=== PATIENT | male | born 1975 | race African-American/Black ===

== ENCOUNTER 2017-11-16 12:16 | Inpatient (IN) | payer OTHER ==
[~2017-11-16] VITALS: Ht 185.4 cm; Wt 141.5 kg
[2017-11-16 13:13] LABS: PLATELET COUNT 229 x10^3mcL (130-400); RED CELL DISTRIBUTION WIDTH 13.8 % (11.5-14.5)
[2017-11-16 13:23] LABS: BAND NEUTROPHIL 0 % (0-10); BASOPHIL 0 % (0-2); MONOCYTE 14 % (0-7); SEGMENTED NEUTROPHILS 51 % (37-75)
[2017-11-16 13:25] LABS: PLATELET MORPHOLOGY PLATELETS NORMAL
[2017-11-16 14:32] LABS: ALBUMIN 2.9 g/dL (3.4-5.0); BILIRUBIN TOTAL 0.39 mg/dL (0.20-1.00); CALCIUM 8.5 mg/dL (8.5-10.1); CARBON DIOXIDE 20.7 mmol/L (21-32); FREE T4 1.43 ng/dL (0.76-1.46); POTASSIUM SERUM 4.3 mmol/L (3.5-5.1); TOTAL PROTEIN, SERUM 7.5 g/dL (6.4-8.2)
[2017-11-16 14:34] LABS: CREATININE SERUM 5.7 mg/dL (0.7-1.3)
[2017-11-16 15:38] VITALS: BP 109/56
[2017-11-16] MEDS ORDERED: ACETAMINOP160 MG/52 PO (15:46)
[2017-11-16] MEDS ORDERED: AMOXICILLIN500 MG PO (15:47)
[2017-11-16] MEDS ORDERED: CALCITRIOL0.25 MCG PO (15:48)
[2017-11-16] MEDS ORDERED: LISINOPRIL40 MG PO (15:49)
[2017-11-16] MEDS ORDERED: IPRATROPIUM BROM3 M2 (15:50)
[2017-11-16] MEDS ORDERED: NOR10 PO (15:50)
[2017-11-16] MEDS ORDERED: DULERA1 AR2 (15:51)
[2017-11-16] MEDS ORDERED: XOPENEX HF0.045 MG/1 (15:52)
[2017-11-16 19:27] VITALS: BP 101/66
[2017-11-16 20:17] VITALS: BP 101/62
[2017-11-16 23:58] LABS: UA SPECIFIC GRAVITY <=1.005 (1.005-1.035); microscopic required? YES; urine erythrocyte 1+ (NEGATIVE)
[2017-11-17 00:04] LABS: AMPHETAMINE QUAL UR NONE DETECTED (See below)
[2017-11-17 00:05] LABS: CREATININE UR 46.7 mg/dL
[2017-11-17 06:05] VITALS: BP 103/65
[2017-11-17 07:04] LABS: PLATELET COUNT 253 x10^3mcL (130-400); RED CELL DISTRIBUTION WIDTH 13.5 % (11.5-14.5)
[2017-11-17 07:20] LABS: CALCIUM 8.1 mg/dL (8.5-10.1); CARBON DIOXIDE 22.1 mmol/L (21-32); POTASSIUM SERUM 4.1 mmol/L (3.5-5.1)
[2017-11-17 07:23] LABS: CREATININE SERUM 4.2 mg/dL (0.7-1.3)
[2017-11-17 07:59] LABS: ATYPICAL LYMPH 16 %; BAND NEUTROPHIL 5 % (0-10); BASOPHIL 0 % (0-2); MONOCYTE 21 % (0-7); SEGMENTED NEUTROPHILS 21 % (37-75)
[2017-11-17 08:00] LABS: PLATELET MORPHOLOGY PLATELETS NORMAL; rbc morphology (normal/abnorm) ABNORMAL (NORMAL)
[2017-11-17 08:52] VITALS: BP 105/72
[2017-11-17 12:24] VITALS: BP 111/66
[2017-11-17 17:11] VITALS: BP 149/92
[2017-11-17 20:47] VITALS: BP 107/66
[2017-11-18 05:39] VITALS: BP 121/78
[2017-11-18 06:57] LABS: BASOPHIL % 0.5 % (0-2); PLATELET COUNT 296 x10^3mcL (130-400); RED CELL DISTRIBUTION WIDTH 13.7 % (11.5-14.5)
[2017-11-18 07:00] LABS: CALCIUM 8.2 mg/dL (8.5-10.1); CARBON DIOXIDE 21.3 mmol/L (21-32); CREATININE SERUM 2.9 mg/dL (0.7-1.3); POTASSIUM SERUM 3.8 mmol/L (3.5-5.1)
[2017-11-18 09:23] LABS: microalbumin:creatinine ratio 56.5 (0.0-30.0)
[2017-11-18 10:00] VITALS: BP 112/72
[2017-11-18 14:38] VITALS: BP 121/81
[2017-11-18 15:38] VITALS: BP 121/81
== END 2017-11-18 17:46 | disposition other institution (70) | DRG 314 ==
LOC: ED 12:16 → IC 14:41 → ED 14:41 → DU 14:41 → IC 17:06 → DU 18:11
PROVIDERS: Emergency Medicine; Internal Medicine
DX: I95.9 Hypotension, unspecified (principal); N17.0 Acute kidney failure with tubular necrosis; N25.81 Secondary hyperparathyroidism of renal origin; E86.0 Dehydration; J44.9 Chronic obstructive pulmonary disease, unspecified; I12.9 Hypertensive chronic kidney disease with stage 1 through stage 4 chronic kidney disease, or unspecified chronic kidney disease; Z87.891 Personal history of nicotine dependence; E78.5 Hyperlipidemia, unspecified; E66.01 Morbid (severe) obesity due to excess calories; N18.3 Chronic kidney disease, stage 3 (moderate)
CPT/HCPCS: 83880; 84439; J7030; J7050; Q0092